=== PATIENT | male | born 1995 | race Caucasian/White ===

== ENCOUNTER 2022-12-19 17:30 | Emergency (ER) | payer SELFPAY ==
[~2022-12-19] VITALS: Ht 162.6 cm; Wt 70.3 kg
[2022-12-19 17:42] VITALS: BP 128/83
--- NOTE | 2022-12-19 17:47 | NUR ---
TO ER BED 9
--- NOTE | 2022-12-19 18:00 | NUR ---
ABLE TO STAND AND TRANSFER TO BED FROM WHEELCHAIR. ABLE TO UNDRESS AND TURN IN BED BY SELF DURING EXAM. AWAKE ALERT X 4, CONVERSANT WITH MD EVALUATION, "CANNOT RECALL WHOLE INCIDENT" NO INJURIES NOTED, NO DEFORMITIES NOTED, NO BRUISES OR FROST NOTED
[2022-12-19] MEDS ORDERED: IBUP-2218 PO (19:33)
[2022-12-19] MEDS ORDERED: ACET-10509 PO (19:33)
--- NOTE | 2022-12-19 19:40 | NUR ---
Patient resting in bed, A/Ox4, chest rise and fall symmetrical, no c/o pain or s/s of distress, on monitor.
[2022-12-19 19:56] VITALS: BP 113/74
--- NOTE | 2022-12-19 19:57 | NUR ---
Patient discharged with v/s stable. Written and verbal after care instructions given and explained. Patient alert, oriented and verbalized understanding of instructions given by Dr. Vela. Ambulatory with steady gait. All questions addressed prior to discharge. ID band removed. Patient advised to follow up with PMD. Rx given to patient. Patient educated on indication of medication including possible reaction and side effects. Opportunity to ask questions provided and answered.
== END 2022-12-19 19:56 | disposition home or self-care (01) ==
LOC: MED 17:30 → EDBD 17:30 → MED 19:48
DX: S00.03XA Contusion of scalp, initial encounter (principal); M54.50 Low back pain, unspecified; M25.552 Pain in left hip; W11.XXXA Fall on and from ladder, initial encounter; Y93.89 Activity, other specified; Y92.89 Other specified places as the place of occurrence of the external cause; Y99.8 Other external cause status
CPT/HCPCS: 70450; 72131; 72192; 99284